=== PATIENT | female | born 1960 | race Caucasian/White ===

== ENCOUNTER → 2018-05-22 | Outpatient (CLI) | payer OTHER ==
[~2018-05-22] MED LIST: IBUPROFEN 600600 M1 PO; NOHOMEMEDICATIONS; NORCO 5-325 TA1 EACH PO
== END ==
LOC: M.RAD 09:16
DX: Z12.31 Encounter for screening mammogram for malignant neoplasm of breast (principal)

== ENCOUNTER → 2019-06-12 | Outpatient (CLI) | payer OTHER | LOC: M.RAD 09:28 | DX: Z12.31 Encounter for screening mammogram for malignant neoplasm of breast (principal) ==

== ENCOUNTER → 2020-08-17 | Outpatient (CLI) | payer OTHER | LOC: M.RAD 10:38 | PROVIDERS: ATTEND Family Medicine | DX: Z12.31 Encounter for screening mammogram for malignant neoplasm of breast (principal); N63.41 Unspecified lump in right breast, subareolar ==

== ENCOUNTER → 2020-08-19 | Outpatient (CLI) | payer OTHER | LOC: M.ULTRA 09:28 | PROVIDERS: ATTEND Family Medicine | DX: N63.11 Unspecified lump in the right breast, upper outer quadrant (principal) ==

== ENCOUNTER 2020-10-28 13:14 | Inpatient (IN) | payer OTHER ==
[~2020-10-28] VITALS: Ht 152.4 cm; Wt 47.6 kg
[2020-10-28 13:33] VITALS: BP 140/76
[2020-10-28] MEDS ORDERED: LIPITOR10 MG PO (13:38)
[2020-10-28 14:15] LABS: ABSOLUTE BASOPHILS 0.1 thou/uL (0.0-0.2); ABSOLUTE EOSINOPHILS 0.1 thou/uL (0.0-0.7); ABSOLUTE LYMPHOCYTES 3.7 thou/uL (0.8-5.3); ABSOLUTE MONOCYTES 0.6 thou/uL (0.0-1.2); ABSOLUTE NEUTROPHILS 3.7 thou/uL (1.6-8.1); BASOPHILS 0.6 %; EOSINOPHILS 1.5 %; HEMATOCRIT 31.8 % (37.0-47.0); HEMOGLOBIN 10.6 gm/dL (12.0-15.0); LYMPHOCYTES 45.2 %; MCH 28.9 pg (26.0-34.0); MCHC 33.3 g/dL (28.0-37.0); MCV 86.8 fL (80.0-100.0); MONOCYTES 7.1 %; MPV 8.1 fl. (7.2-11.1); NUCLEATED RBCS 0 /100WBC; PLATELET COUNT* 362 thou/uL (150-400); POLYS 45.6 %; RBC 3.66 mil/uL (4.20-5.00); RDW-CV 14.8 % (10.5-14.5); WBC 8.2 thou/uL (4.0-11.0)
[2020-10-28 14:20] LABS: CALCIUM 8.9 mg/dL (8.5-10.1); CREATININE 1.3 mg/dL (0.6-1.3)
[2020-10-28 14:30] LABS: ALBUMIN 3.8 g/dL (3.4-5.0); MAGNESIUM 1.7 mg/dL (1.8-2.4); TOTAL BILIRUBIN 0.3 mg/dL (<0.1-1.0); TOTAL PROTEIN 7.5 g/dL (6.4-8.2)
[2020-10-28 16:12] LABS: URINE BILIRUBIN NEGATIVE (Negative); URINE BLOOD TRACE (Negative); URINE CLARITY CLEAR; URINE COLOR YELLOW; URINE GLUCOSE-RANDOM NEGATIVE (Negative); URINE KETONES NEGATIVE (Negative); URINE LEUKOCYTES-REFLEX NEGATIVE (Negative); URINE NITRITE-REFLEX NEGATIVE (Negative); URINE PROTEIN NEGATIVE (Negative); URINE SPECIFIC GRAVITY <= 1.005 (1.005-1.030); URINE UROBILINOGEN 0.2 E.U./dl (0.2-1.0)
[2020-10-28 16:20] LABS: AMP/METHAMP Negative (Negative); BARBITURATES Negative (Negative); BENZODIAZEPINES Negative (Negative); COCAINE Negative (Negative); METHADONE Negative (Negative); OPIATES Negative (Negative); PCP Negative (Negative); THC Negative (Negative)
--- NOTE | 2020-10-28 16:35 | EKG ---
[place] [address] ELECTROCARDIOGRAM REPORT Name: LINDA FIGUEROA Room: [place] [address] ADM IN [facility].#: [id number] Admission: 10/28/20 Attend Phys: Merlin Bridges Discharge: Date of : 56 Date of Service: 10/28/20 1344 Report #: [id number] THIS REPORT FOR: //name// [facility] ED Test Date: 2020-10-28 Test Time: 13:44:47 Pat Name: LINDA FIGUEROA Department: Room: [facility] Gender: F Cw Operator: MOON : 1960 Requested By: Mich Cline Order Number: [id number] MD: Amilcar Call Measurements Intervals [place] Rate: 117 P: 77 GA: 176 QRS: 73 QRSD: 79 T: 3 QT: 308 QTc: 430 Interpretive Statements Sinus tachycardia Borderline T abnormalities, diffuse leads Compared to ECG 04/18/2011 10:57:32 T-wave abnormality now present Sinus rate has increased Right-axis deviation no longer present Electronically Signed On 10-28-2020 16:35:16 CDT by Amilcar Call [email or web address] <ELECTRONICALLY SIGNED> By: Amilcar Call MD, [facility] 10/28/20 1635 1344 1344 Amilcar Call MD, [facility] /EPI
[2020-10-28 16:52] VITALS: BP 165/98
[2020-10-28 20:00] VITALS: BP 100/62
[2020-10-29] VITALS: BP 118/71
[2020-10-29 04:00] VITALS: BP 120/67
[2020-10-29 10:07] LABS: CALCIUM 8.6 mg/dL (8.5-10.1); POTASSIUM 4.5 mmol/L (3.5-5.1)
[2020-10-29 12:00] VITALS: BP 123/72
[2020-10-29 16:00] VITALS: BP 133/75
[2020-10-29 20:00] VITALS: BP 137/76
[2020-10-30 00:33] VITALS: BP 125/69
[2020-10-30 04:45] VITALS: BP 122/74
[2020-10-30 05:35] LABS: HEMATOCRIT 30.9 % (37.0-47.0); HEMOGLOBIN 10.6 gm/dL (12.0-15.0); MCH 29.7 pg (26.0-34.0); MCHC 34.3 g/dL (28.0-37.0); MCV 86.6 fL (80.0-100.0); MPV 7.7 fl. (7.2-11.1); RBC 3.57 mil/uL (4.20-5.00); RDW-CV 14.6 % (10.5-14.5); WBC 6.9 thou/uL (4.0-11.0)
[2020-10-30 05:55] LABS: CALCIUM 8.2 mg/dL (8.5-10.1); CREATININE 0.9 mg/dL (0.6-1.3); POTASSIUM 3.9 mmol/L (3.5-5.1)
[2020-10-30 08:00] VITALS: BP 133/63
[2020-10-30 12:00] VITALS: BP 141/70
[2020-10-30] MEDS ORDERED: PREGABALIN150 MG PO (15:29)
[2020-10-30] MEDS ORDERED: SERTRALINE HCL100 MG PO (15:30)
[2020-10-30] MEDS ORDERED: ZOLOFT25 MG PO (15:33)
[2020-10-30] MEDS ORDERED: PREGABALIN50 MG PO (15:36)
[2020-10-30 16:00] VITALS: BP 142/79
[2020-10-30 16:31] VITALS: BP 133/63
== END 2020-10-30 17:00 | disposition home or self-care (01) | DRG 641 ==
LOC: M.ERS 13:14 → M.TBA-ER 15:10 → M.2W 15:10
PROVIDERS: Emergency Medicine Emergency Medical Services; Family Medicine; ADMIT Internal Medicine; ATTEND Internal Medicine
DX: E87.1 Hypo-osmolality and hyponatremia (principal); Z20.822 Contact with and (suspected) exposure to COVID-19; E78.5 Hyperlipidemia, unspecified; G62.9 Polyneuropathy, unspecified; E83.42 Hypomagnesemia; E87.2 Acidosis; E53.8 Deficiency of other specified B group vitamins; M47.892 Other spondylosis, cervical region; Z82.69 Family history of other diseases of the musculoskeletal system and connective tissue; M79.662 Pain in left lower leg; W18.39XA Other fall on same level, initial encounter; Y93.89 Activity, other specified; Y92.89 Other specified places as the place of occurrence of the external cause; Y99.8 Other external cause status

== ENCOUNTER → 2021-02-25 | Outpatient (CLI) | payer OTHER ==
[~2021-02-25] MED LIST changes: +LIPITOR10 MG PO; +PREGABALIN150 MG PO; +PREGABALIN50 MG PO; +SERTRALINE HCL100 MG PO; +ZOLOFT25 MG PO
== END ==
LOC: M.RAD 02-16 16:52
PROVIDERS: ATTEND Family Medicine
DX: N63.41 Unspecified lump in right breast, subareolar (principal); R92.8 Other abnormal and inconclusive findings on diagnostic imaging of breast

== ENCOUNTER → 2021-05-02 | Outpatient (CLI) | payer OTHER ==
[2021-05-02 10:10] LABS: APTT 24.4 Seconds (25.0-31.3); PROTIME 10.5 Seconds (9.20-11.50)
[2021-05-02 11:45] VITALS: BP 119/76
[2021-05-02 12:00] VITALS: BP 138/78
[2021-05-02 12:07] LABS: CSF GLUCOSE 50 mg/dl (40-70); CSF PROTEIN 35.5 mg/dl (15-45)
[2021-05-02 12:10] LABS: CSF CLARITY CLEAR; CSF COLOR COLORLESS; VOLUME 15 ml
[2021-05-02 12:19] VITALS: BP 132/84
[2021-05-02 12:24] LABS: CSF RBC 1 /mm3; CSF WBC 0 /mm3 (0-10)
[2021-05-02 12:47] VITALS: BP 152/84
[2021-05-02 13:24] VITALS: BP 142/85
[2021-05-05 15:07] LABS: CSF VDRL Non Reactive (Non Rea:<1:1)
== END | disposition home or self-care (01) ==
LOC: M.LAB 08:00 → M.RAD 09:00
PROVIDERS: ATTEND Psychiatry & Neurology Neurology
DX: G35 Multiple sclerosis (principal); E78.5 Hyperlipidemia, unspecified; M19.90 Unspecified osteoarthritis, unspecified site; Z79.899 Other long term (current) drug therapy